=== PATIENT | female | born 1940 | race Caucasian/White ===

== ENCOUNTER → 2016-09-28 | Outpatient (CLI) | payer OTHER ==
[~2016-09-28] MED LIST: ALTACE10 M1 PO; AMBIEN CR 6.26.25 MG PO; ASPIR 8181 MG PO; ASPIRIN81 M2 PO; AZOR 10-20 MG1 EACH PO; BENADRYL25 MG; C-500500 MG; CENTRUM SILVER1 EAC4 PO; COLACE100 MG; COUMADIN 2 MG TA2 M1; COUMADIN 5 MG TA5 M1; FERROUS SULFAT325 M1; GLUCOPHAGE1000 MG PO; GLUCOSAMINE &1 EAC1 PO; GLUCOSAMINE CH1 EAC9 PO; HYDROCHLOROTHIA25 M1 PO; HYDROCODON-ACE1 EAC8; K-DUR 20 MEQ T20 MEQ PO; KRILL OIL500 MG PO; LANTUS SUBQ; LEVOTHYROXIN0.025 MG PO; LOVASTAT40 PO; MELOXICAM7.5 MG PO; MULTIVITAMINS PO; NEURONTIN 300300 M1 PO; NORVASC10 MG PO; NYSTATIN1 EA10 TOP; PEPTO-BISMOL262 M1 PO; POTASSIUM GLUC500 MG PO; POTASSIUM99 M1 PO; QUINU10 PD PO; SENNA CONCENTR8.6 MG; VITAMIN B-12500 MCG PO; VITAMIN D32000 UNI1 PO; ZOLPIDEM TART12.5 M1 PO; [UNRECOGNIZED DRUG - OTHER] PO
== END ==
LOC: RAD 01:30
DX: N63 Unspecified lump in breast (principal); C50.911 Malignant neoplasm of unspecified site of right female breast

== ENCOUNTER → 2017-03-16 | Outpatient (CLI) | payer OTHER | LOC: RAD 04:06 | DX: R92.8 Other abnormal and inconclusive findings on diagnostic imaging of breast (principal) ==

== ENCOUNTER → 2019-02-02 | Outpatient (CLI) | payer OTHER | LOC: RAD 14:16 | DX: Z12.31 Encounter for screening mammogram for malignant neoplasm of breast (principal) ==

== ENCOUNTER → 2020-04-01 | Outpatient (CLI) | payer OTHER | LOC: RAD 12:57 | PROVIDERS: ATTEND Internal Medicine Hematology & Oncology | DX: Z12.31 Encounter for screening mammogram for malignant neoplasm of breast (principal) ==